=== PATIENT | female | born 1980 | race Caucasian/White ===

== ENCOUNTER → 2017-01-15 | Outpatient (CLI) | payer BC | LOC: FIMAGING 12:26 | PROVIDERS: ATTEND Obstetrics & Gynecology | DX: O09.521 Supervision of elderly multigravida, first trimester (principal); O30.031 Twin pregnancy, monochorionic/diamniotic, first trimester; Z3A.12 12 weeks gestation of pregnancy ==

== ENCOUNTER → 2017-02-11 | Outpatient (CLI) | payer BC | LOC: FIMAGING 09:36 | PROVIDERS: ATTEND Obstetrics & Gynecology | DX: O30.032 Twin pregnancy, monochorionic/diamniotic, second trimester (principal); O09.522 Supervision of elderly multigravida, second trimester; O44.02 Complete placenta previa NOS or without hemorrhage, second trimester; Z3A.15 15 weeks gestation of pregnancy ==

== ENCOUNTER → 2017-02-14 | Outpatient (CLI) | payer BC | LOC: FIMAGING 14:46 | PROVIDERS: ATTEND Obstetrics & Gynecology | DX: O30.032 Twin pregnancy, monochorionic/diamniotic, second trimester (principal); O36.5921 Maternal care for other known or suspected poor fetal growth, second trimester, fetus 1; O41.02X1 Oligohydramnios, second trimester, fetus 1; O35.8XX1 Maternal care for other (suspected) fetal abnormality and damage, fetus 1; Z3A.16 16 weeks gestation of pregnancy ==

== ENCOUNTER → 2018-08-07 | Outpatient (CLI) | payer OTHER | LOC: FIMAGING 15:49 | PROVIDERS: ATTEND Otolaryngology | DX: J01.00 Acute maxillary sinusitis, unspecified (principal) ==

== ENCOUNTER → 2018-08-22 | Outpatient (CLI) | payer OTHER | LOC: FIMAGING 08:41 | PROVIDERS: ATTEND Internal Medicine Hematology & Oncology | DX: R16.1 Splenomegaly, not elsewhere classified (principal); N85.9 Noninflammatory disorder of uterus, unspecified ==

== ENCOUNTER → 2018-08-22 | Outpatient (CLI) | payer OTHER | LOC: BMCIMAGING 11:34 | PROVIDERS: ATTEND Nurse Practitioner Family | DX: R94.2 Abnormal results of pulmonary function studies (principal) ==

== ENCOUNTER → 2018-09-06 | Outpatient (CLI) | payer OTHER ==
[~2018-09-06] MED LIST: IOPAMIDOL (ISOVUE-300) 100 ML BTL ONE
== END ==
LOC: FIMAGING 11:14
PROVIDERS: ATTEND Physician Assistant
DX: R19.01 Right upper quadrant abdominal swelling, mass and lump (principal); N28.1 Cyst of kidney, acquired; K59.00 Constipation, unspecified
CPT/HCPCS: Q9967

== ENCOUNTER → 2018-09-25 | Outpatient (CLI) | payer OTHER | LOC: FIMAGING 09:45 ==

== ENCOUNTER → 2018-10-15 | Outpatient (CLI) | payer OTHER | LOC: FIMAGING 11:28 ==